=== PATIENT | female | born 1970 | race Two or more races ===

== ENCOUNTER 2019-05-27 09:42 | Outpatient (CLI) | payer OTHER | END 2019-05-27 23:59 | disposition home or self-care (01) | LOC: RAD 09:42 | PROVIDERS: ATTEND Orthopaedic Surgery Orthopaedic Surgery of the Spine | DX: M25.562 Pain in left knee (principal); F32.9 Major depressive disorder, single episode, unspecified; E03.9 Hypothyroidism, unspecified; M06.9 Rheumatoid arthritis, unspecified; Z83.3 Family history of diabetes mellitus; Z82.49 Family history of ischemic heart disease and other diseases of the circulatory system; Z86.11 Personal history of tuberculosis; Z96.652 Presence of left artificial knee joint | CPT/HCPCS: 78315; A9503 ==

== ENCOUNTER 2019-07-01 09:30 | Inpatient (IN) | payer OTHER ==
[~2019-07-01] VITALS: Ht 165.1 cm; Wt 68.9 kg
[~2019-07-01 09:30] MED LIST: LEVO25TA4 PO; METH2.5T PO; TRAM50TA2 PO
[2019-07-01 09:39] LABS: BASOPHILS # (AUTO) 0.07 x10^3/uL (0-0.1); BASOPHILS % (AUTO) 1 % (0-1); EOSINOPHILS # (AUTO) 0.18 x10^3/uL (0-0.4); EOSINOPHILS % (AUTO) 3 % (1-7); LYMPHOCYTES # (AUTO) 2.07 x10^3/uL (1-3.4); LYMPHOCYTES % (AUTO) 28 % (22-44); MD NO; MEAN CORPUSCULAR HEMOGLOBIN 29.1 pg (27.0-34.8); MEAN CORPUSCULAR HGB CONC 32.4 g/dL (32.4-35.8); MEAN CORPUSCULAR VOLUME 89.6 fL (80-100); MONOCYTES # (AUTO) 0.63 x10^3/uL (0.2-0.8); MONOCYTES % (AUTO) 9 % (2-9); NEUTROPHILS # (AUTO) 4.32 x10^3/uL (1.8-6.8); NEUTROPHILS % (AUTO) 60 % (42-75); PLATELET COUNT 343 x10^3/uL (130-400); RED BLOOD COUNT 4.05 x10^6/uL (3.82-5.3); RED CELL DISTRIBUTION WIDTH 16.8 % (9.6-15.2)
[2019-07-01 09:46] LABS: ANION GAP 7 mmol/L (5-15); CALCIUM 9.3 mg/dL (8.5-10.1); CHLORIDE 106 mmol/L (98-107); CREATININE 0.65 mg/dL (0.55-1.02); INTERNATIONAL NORMALIZED RATIO 0.96 (0.93-1.1); PROTHROMBIN TIME 10.1 Seconds (9.6-11.5)
[2019-07-01 10:07] LABS: HEMOGLOBIN A1C 5.4 % (4.2-6.3)
[2019-07-01 10:31] LABS: HCT (SEDRATE) 36.3 % (34.6-47.8)
[2019-07-02] MEDS ORDERED: LACTATED RINGERS 1,000 ML IV SCH (10:32)
[2019-07-02] MEDS ORDERED: ACETAMINOPHEN 500 MG TABLET PO ONE (11:00)
[2019-07-02] MEDS ORDERED: VANCOMYCIN PMX 1GM/200ML 200 ML IV ONE (11:00)
[2019-07-02] MEDS ORDERED: GABAPENTIN 300 MG CAPSULE PO ONE (11:00)
[2019-07-02 11:28] LABS: HCG UR SG 1.018 (1.003-1.030)
[2019-07-02] MEDS ORDERED: NEOSPORIN OINT, 15GM ONE (12:39)
[2019-07-02] MEDS ORDERED: KETOROLAC 60 MG/2 ML ONE (12:39)
[2019-07-02] MEDS ORDERED: TRANEXAMIC ACID 100 MG/ML, 10ML ONE (12:39)
[2019-07-02] MEDS ORDERED: morphine SULFATE/PF 1 MG/ML, 10ML ONE (12:39)
[2019-07-02] MEDS ORDERED: ROPIvacaine/PF 0.2%, 20 ML ONE (12:39)
[2019-07-02] MEDS ORDERED: SODIUM CHLORIDE 0.9% 50 ML ONE (12:39)
[2019-07-02] MEDS ORDERED: EPINEPHRINE 1 MG/ML, 1ML ONE (12:40)
[2019-07-02] MEDS ORDERED: MIDAZOLAM 1 MG/ML, 2ML ONE (13:02)
[2019-07-02] MEDS ORDERED: PROPOFOL 10 MG/ML, 20ML ONE (13:02)
[2019-07-02] MEDS ORDERED: FENTANYL PF 250 MCG/5ML ONE (13:02)
[2019-07-02] MEDS ORDERED: ROCURONIUM 10 MG/ML,10ML ONE (14:19)
[2019-07-02] MEDS ORDERED: CEFAZOLIN 1,000 MG ONE (14:19)
[2019-07-02] MEDS ORDERED: ONDANSETRON 2MG/ML, 2ML ONE (14:19)
[2019-07-02] MEDS ORDERED: GLYCOPYRROLATE 0.2MG/1ML, 5ML ONE (14:19)
[2019-07-02] MEDS ORDERED: NEOSTIGMINE 1 MG/ML, 10ML ONE (14:19)
[2019-07-02] MEDS ORDERED: ONDANSETRON 2MG/ML, 2ML IV PRN (15:00)
[2019-07-02] MEDS ORDERED: OXYcodone 5 MG/5 ML ORAL.SOL UDC PO PRN (15:00)
[2019-07-02] MEDS ORDERED: hydrALAzine 20 MG/ML, 1ML IV PRN (15:00)
[2019-07-02] MEDS ORDERED: LABETALOL 5MG/ML, 20ML IV PRN (15:00)
[2019-07-02] MEDS ORDERED: LORazepam 2 MG/ML, 1ML IVPush PRN (15:00)
[2019-07-02] MEDS ORDERED: MEPERIDINE/PF 25MG/ML,1ML IVPush PRN (15:00)
[2019-07-02] MEDS ORDERED: METOCLOPRAMIDE 5 MG/ML, 2ML IV PRN (15:00)
[2019-07-02] MEDS ORDERED: FENTANYL PF 100 MCG/2ML IV PRN (15:00)
[2019-07-02] MEDS ORDERED: VANCOMYCIN 1,000 MG ONE (16:30)
[2019-07-02] MEDS ORDERED: FENTANYL PF 100 MCG/2ML ONE (17:45)
[2019-07-02] MEDS ORDERED: OXYcodone 5 MG/5 ML ORAL.SOL UDC ONE (17:45)
[2019-07-02] MEDS ORDERED: DIAZEPAM 5 MG/ML, 2ML ONE (18:03)
[2019-07-02] MEDS ORDERED: HYDROmorphone 1 MG/ML, 1ML INJ ONE ×2 (18:03→18:48)
[2019-07-02] MEDS: HYDROmorphone 2 MG/ML, 1ML IVPush PRN ×4 (18:04→19:14)
[2019-07-02] MEDS ORDERED: TRANEXAMIC ACID 100 MG/ML, 10ML IVPB STA (18:20)
[2019-07-02] MEDS ORDERED: TRANEXAMIC ACID 1,000 MG in SODIUM CHLORIDE 0.9% 100 ML IV ONE (18:30)
[2019-07-02] MEDS ORDERED: DIAZEPAM 5 MG/ML, 2ML IV ONE (18:30)
[2019-07-02] MEDS ORDERED: METOCLOPRAMIDE 5 MG/ML, 2ML IVPush PRN (21:00)
[2019-07-02] MEDS ORDERED: ONDANSETRON 2MG/ML, 2ML IVPush PRN (21:00)
[2019-07-02] MEDS ORDERED: ZOLPIDEM 5MG TABLET PO PRN (21:00)
[2019-07-02] MEDS ORDERED: DIPHENHYDRAMINE 25 MG CAPSULE PO PRN (21:00)
[2019-07-02] MEDS ORDERED: HYDROcodone/APAP 5/325 TABLET PO PRN (21:00)
[2019-07-02] MEDS ORDERED: DIPHENHYDRAMINE 50 MG/ML, 1ML IVPush PRN (21:00)
[2019-07-02] MEDS: SODIUM CHLORIDE FLUSH 10ML SYR IVF SCH (21:00)
[2019-07-02] MEDS ORDERED: ONDANSETRON ODT 4 MG PO PRN (21:00)
[2019-07-02] MEDS ORDERED: SENNA/DOCUSATE TABLET PO PRN (21:00)
[2019-07-02] MEDS ORDERED: POLYETHYLENE GLYCOL 17 GM PACKET PO PRN (21:00)
[2019-07-02] MEDS ORDERED: METOCLOPRAMIDE 10MG TABLET PO PRN (21:00)
[2019-07-02] MEDS ORDERED: PROMETHAZINE 25 MG SUPP PR PRN (21:00)
[2019-07-02] MEDS ORDERED: SCOPOLAMINE PATCH, 1.5MG PATCH.TD72 TD PRN (21:00)
[2019-07-02] MEDS ORDERED: LORazepam 2 MG/ML, 1ML IV PRN (21:00)
[2019-07-02] MEDS ORDERED: PROMETHAZINE 25 MG/ML, 1ML IM PRN (21:00)
[2019-07-02] MEDS ORDERED: DEXAMETHASONE 4 MG/ML, 1ML IVPush PRN (21:00)
[2019-07-02] MEDS ORDERED: MORPHINE SULFATE 4 MG/ML, 1ML IVPush PRN (21:00)
[2019-07-02] MEDS ORDERED: BISACODYL 10 MG SUPP PR PRN (21:00)
[2019-07-02] MEDS ORDERED: ALUMINUM/MAG/SIMETHICONE 30 ML UDC PO PRN (21:00)
[2019-07-02] MEDS ORDERED: LORazepam 1MG TABLET PO PRN (21:00)
[2019-07-02] MEDS ORDERED: OXYcodone IR 5MG TABLET PO PRN (21:30)
[2019-07-02] MEDS: ACETAMINOPHEN 500 MG TABLET PO SCH (21:39)
[2019-07-02] MEDS: DOCUSATE 100 MG CAPSULE PO SCH (21:39)
[2019-07-02] MEDS: OXYcodone IR 5MG TABLET PO PRN (21:40)
[2019-07-02] MEDS: KETOROLAC 30 MG/1 ML IVPush SCH (21:40)
[2019-07-02] MEDS ORDERED: VANCOMYCIN PMX 1GM/200ML 200 ML IVPB ONE (23:30)
[2019-07-03] MEDS: D5%-0.45NACL+KCL 20MEQ 1,000 ML IV SCH ×3 (00:07→19:00)
[2019-07-03 00:09] VITALS: BP 128/74
[2019-07-03] MEDS: OXYcodone IR 5MG TABLET PO PRN ×5 (01:12→19:48)
[2019-07-03] MEDS: DIAZEPAM 5 MG TABLET PO PRN ×2 (01:42→09:57)
[2019-07-03 01:51] VITALS: BP 140/78
[2019-07-03] MEDS: ACETAMINOPHEN 500 MG TABLET PO SCH ×4 (03:40→23:34)
[2019-07-03] MEDS: LEVOTHYROXINE 25 MCG TABLET PO SCH (05:38)
[2019-07-03] MEDS: KETOROLAC 30 MG/1 ML IVPush SCH ×2 (05:38→13:09)
[2019-07-03 05:56] LABS: BASOPHILS # (AUTO) 0.02 x10^3/uL (0-0.1); BASOPHILS % (AUTO) 0 % (0-1); EOSINOPHILS # (AUTO) 0.18 x10^3/uL (0-0.4); EOSINOPHILS % (AUTO) 1 % (1-7); LYMPHOCYTES # (AUTO) 1.23 x10^3/uL (1-3.4); LYMPHOCYTES % (AUTO) 9 % (22-44); MD NO; MEAN CORPUSCULAR HEMOGLOBIN 29.3 pg (27.0-34.8); MEAN CORPUSCULAR VOLUME 91.5 fL (80-100); MEAN PLATELET VOLUME 8.6 fL (7.4-10.4); MONOCYTES # (AUTO) 1.04 x10^3/uL (0.2-0.8); MONOCYTES % (AUTO) 8 % (2-9); NEUTROPHILS # (AUTO) 10.98 x10^3/uL (1.8-6.8); NEUTROPHILS % (AUTO) 82 % (42-75); PLATELET COUNT 299 x10^3/uL (130-400); RED BLOOD COUNT 3.55 x10^6/uL (3.82-5.3); RED CELL DISTRIBUTION WIDTH 16.3 % (9.6-15.2)
[2019-07-03 06:36] VITALS: BP 115/71
[2019-07-03] MEDS: ASPIRIN 325 MG TABLET EC PO SCH ×2 (08:26→18:12)
[2019-07-03] MEDS: DOCUSATE 100 MG CAPSULE PO SCH ×2 (08:26→19:49)
[2019-07-03] MEDS: SODIUM CHLORIDE FLUSH 10ML SYR IVF SCH ×2 (08:26→19:49)
[2019-07-03 12:07] VITALS: BP 119/75
[2019-07-03] MEDS: METHOCARBAMOL 1,000 MG in DEXTROSE 5% 100 ML IV SCH ×2 (13:10→21:20)
[2019-07-04 01:16] VITALS: BP 102/62
[2019-07-04] MEDS: OXYcodone IR 5MG TABLET PO PRN ×3 (04:11→12:56)
[2019-07-04] MEDS: D5%-0.45NACL+KCL 20MEQ 1,000 ML IV SCH ×2 (05:00→15:00)
[2019-07-04] MEDS: METHOCARBAMOL 1,000 MG in DEXTROSE 5% 100 ML IV SCH ×2 (05:03→14:34)
[2019-07-04 06:27] LABS: BASOPHILS # (AUTO) 0.04 x10^3/uL (0-0.1); BASOPHILS % (AUTO) 1 % (0-1); EOSINOPHILS # (AUTO) 0.14 x10^3/uL (0-0.4); EOSINOPHILS % (AUTO) 2 % (1-7); LYMPHOCYTES # (AUTO) 2.17 x10^3/uL (1-3.4); LYMPHOCYTES % (AUTO) 28 % (22-44); MD NO; MEAN CORPUSCULAR HEMOGLOBIN 30.1 pg (27.0-34.8); MEAN CORPUSCULAR HGB CONC 32.9 g/dL (32.4-35.8); MEAN CORPUSCULAR VOLUME 91.6 fL (80-100); MEAN PLATELET VOLUME 8.2 fL (7.4-10.4); MONOCYTES # (AUTO) 0.53 x10^3/uL (0.2-0.8); MONOCYTES % (AUTO) 7 % (2-9); NEUTROPHILS # (AUTO) 4.99 x10^3/uL (1.8-6.8); NEUTROPHILS % (AUTO) 63 % (42-75); PLATELET COUNT 232 x10^3/uL (130-400); RED BLOOD COUNT 2.97 x10^6/uL (3.82-5.3); RED CELL DISTRIBUTION WIDTH 17.3 % (9.6-15.2)
[2019-07-04] MEDS: LEVOTHYROXINE 25 MCG TABLET PO SCH (06:27)
[2019-07-04] MEDS: ACETAMINOPHEN 500 MG TABLET PO SCH ×2 (06:27→12:11)
[2019-07-04] MEDS: ASPIRIN 325 MG TABLET EC PO SCH (06:28)
[2019-07-04 08:14] VITALS: BP 108/70
[2019-07-04] MEDS: SODIUM CHLORIDE FLUSH 10ML SYR IVF SCH (08:38)
[2019-07-04] MEDS: DOCUSATE 100 MG CAPSULE PO SCH (08:38)
[2019-07-04] MEDS ORDERED: OXYC15TA PO (13:44)
[2019-07-04 13:47] VITALS: BP 105/67
[2019-07-04] MEDS ORDERED: DIAZ5TAB PO (13:48)
[2019-07-04] MEDS ORDERED: CEPH-368 PO (13:51)
[2019-07-04] MEDS ORDERED: ASPI-650 PO (13:52)
[2019-07-04] MEDS ORDERED: IBUP-1223 PO (13:56)
[2019-07-04] MEDS ORDERED: ACET325T14 PO (13:58)
== END 2019-07-04 16:08 | disposition home health service (06) | DRG 468 ==
LOC: ORIP 07-02 10:25 → EDSTATUS 07-02 12:30 → 4NE 07-02 20:05 → DCLOUNGE 07-04 15:53
PROVIDERS: ADMIT Orthopaedic Surgery Orthopaedic Surgery of the Spine; ATTEND Orthopaedic Surgery Orthopaedic Surgery of the Spine
PROC: 0SRD069 Replacement of Left Knee Joint with Oxidized Zirconium on Polyethylene Synthetic Substitute, Cemented, Open Approach (ICD-10-PCS; 2019-07-02)
PROC: 3E0T3BZ Introduction of Anesthetic Agent into Peripheral Nerves and Plexi, Percutaneous Approach (ICD-10-PCS; 2019-07-02)
PROC: B54CZZA Ultrasonography of Left Lower Extremity Veins, Guidance (ICD-10-PCS; 2019-07-02)
PROC: 0SPD0JZ Removal of Synthetic Substitute from Left Knee Joint, Open Approach (ICD-10-PCS; principal; 2019-07-02 12:30)
DX: T84.093A Other mechanical complication of internal left knee prosthesis, initial encounter (principal); M17.10 Unilateral primary osteoarthritis, unspecified knee; Y79.2 Prosthetic and other implants, materials and accessory orthopedic devices associated with adverse incidents; E03.9 Hypothyroidism, unspecified; F32.9 Major depressive disorder, single episode, unspecified; M65.862 Other synovitis and tenosynovitis, left lower leg; M06.862 Other specified rheumatoid arthritis, left knee; Y92.89 Other specified places as the place of occurrence of the external cause; Y93.9 Activity, unspecified; Y99.8 Other external cause status
CPT/HCPCS: 36415; 71046; 80048; 81025; 83036; 85025; 85610; 85651; 85730; 87081; 93005; C1713; G0378; J0171; J0690; J1170; J1885; J2250; J2274; J2405; J2704; J2710; J2795; J3010; J3360; J3370; C1776; J2800; J3480; J7120

== ENCOUNTER 2019-11-08 13:25 | Emergency (ER) | payer BC, OTHER ==
[~2019-11-08] VITALS: Ht 165.1 cm; Wt 71.6 kg
[~2019-11-08 13:25] MED LIST changes: +ACET325T14 PO; +ASPI-650 PO; +CEPH-368 PO; +DIAZ5TAB PO; +IBUP-1223 PO; +OXYC15TA PO
[2019-11-08] MEDS ORDERED: ONDANSETRON 2MG/ML, 2ML IVPush ONE (14:00)
[2019-11-08] MEDS ORDERED: SODIUM CHLORIDE FLUSH 10ML SYR IVF ONE (14:00)
[2019-11-08] MEDS ORDERED: MORPHINE SULFATE 4 MG/ML, 1ML IVPush PRN (14:00)
[2019-11-08] MEDS ORDERED: ONDANSETRON 2MG/ML, 2ML ONE (14:14)
[2019-11-08] MEDS ORDERED: MORPHINE SULFATE 4 MG/ML, 1ML ONE (14:15)
[2019-11-08 14:17] LABS: BASOPHILS # (AUTO) 0.05 x10^3/uL (0-0.1); BASOPHILS % (AUTO) 1 % (0-1); EOSINOPHILS # (AUTO) 0.09 x10^3/uL (0-0.4); EOSINOPHILS % (AUTO) 2 % (1-7); LYMPHOCYTES # (AUTO) 2.11 x10^3/uL (1-3.4); LYMPHOCYTES % (AUTO) 36 % (22-44); MD NO; MEAN CORPUSCULAR HEMOGLOBIN 29.6 pg (27.0-34.8); MEAN CORPUSCULAR HGB CONC 33.3 g/dL (32.4-35.8); MEAN CORPUSCULAR VOLUME 88.8 fL (80-100); MEAN PLATELET VOLUME 8.8 fL (7.4-10.4); MONOCYTES # (AUTO) 0.42 x10^3/uL (0.2-0.8); MONOCYTES % (AUTO) 7 % (2-9); NEUTROPHILS # (AUTO) 3.16 x10^3/uL (1.8-6.8); NEUTROPHILS % (AUTO) 54 % (42-75); PLATELET COUNT 291 x10^3/uL (130-400); RED BLOOD COUNT 4.23 x10^6/uL (3.82-5.3); RED CELL DISTRIBUTION WIDTH 16.9 % (9.6-15.2)
[2019-11-08 14:19] LABS: ALANINE AMINOTRANSFERASE 42 U/L (12-78); ALBUMIN 4.1 g/dL (3.4-5.0); ANION GAP 3 mmol/L (5-15); CALCIUM 9.6 mg/dL (8.5-10.1); CHLORIDE 108 mmol/L (98-107); CREATININE 0.65 mg/dL (0.55-1.02)
[2019-11-08 14:20] LABS: MICROSCOPIC NOT IND
[2019-11-08 14:24] LABS: ALKALINE PHOSPHATASE 108 U/L (45-117); BILIRUBIN,TOTAL 0.4 mg/dL (0.2-1.0); TOTAL PROTEIN 8.4 g/dL (6.4-8.2)
[2019-11-08 14:31] LABS: CULTURE INDICATED? NO
[2019-11-08] MEDS ORDERED: OMNIPAQUE 350 MG/ML, 150 ML BOTTLE ONE (15:04)
--- NOTE | 2019-11-08 15:15 | NUR ---
Late note: Patient into room, RN to bedside, patient standing awaiting assessment by provider. Provider to bedside, orders placed, RN returned and obtained peripheral intravenou access per order. RN returned, patient medicated with analgesic and antiemetic medications. Patient tolerated well. On return patient reevaluated by provider new order placed for additional imaging.
--- NOTE | 2019-11-08 15:50 | NUR ---
BREAK RN NOTE: PT IN US.
--- NOTE | 2019-11-08 16:19 | NUR ---
Patient remains in ultrasound. Awaiting return.
[2019-11-08 16:28] VITALS: BP 115/64
== END 2019-11-08 17:15 | disposition home or self-care (01) ==
LOC: ED 13:55
DX: R10.31 Right lower quadrant pain (principal); R30.0 Dysuria; Z87.442 Personal history of urinary calculi
CPT/HCPCS: 36415; 74177; 76830; 80053; 81003; 84703; 85025; 96374; 96375; 99285; J2270; J2405; Q9967

== ENCOUNTER 2019-11-21 21:07 | Emergency (ER) | payer BC ==
[~2019-11-21] VITALS: Ht 165.1 cm; Wt 68.2 kg
[~2019-11-21 21:07] MED LIST changes: -OXYC15TA PO; +OXYC15TA3 PO
--- NOTE | 2019-11-21 21:38 | NUR ---
PT CAME IN CO OF "CHEST PAIN, COUGH, SOB, AND FEVER". PTs FAMILY MEMBERS HAVE ALL BEEN HAVING SIMILAR SYMPTOMS. PT IS RESTING IN GURNEY CONNECTED TO [employer] AND [employer] FAC[employer] MEMBER. EKG COMPLETE.
[2019-11-21] MEDS ORDERED: HYDROmorphone 2 MG/ML, 1ML ONE (21:41)
[2019-11-21] MEDS ORDERED: ONDANSETRON 2MG/ML, 2ML ONE (21:41)
[2019-11-21] MEDS ORDERED: SODIUM CHLORIDE 0.9% 1,000ML IVBOLUS ONE (22:00)
[2019-11-21] MEDS ORDERED: HYDROmorphone 1 MG/ML, 1ML INJ IVPush PRN (22:00)
[2019-11-21] MEDS ORDERED: SODIUM CHLORIDE FLUSH 10ML SYR IVF ONE (22:00)
[2019-11-21] MEDS ORDERED: ONDANSETRON 2MG/ML, 2ML IVPush ONE (22:00)
[2019-11-21 22:14] LABS: BASOPHILS # (AUTO) 0.02 x10^3/uL (0-0.1); BASOPHILS % (AUTO) 0 % (0-1); EOSINOPHILS # (AUTO) 0.02 x10^3/uL (0-0.4); EOSINOPHILS % (AUTO) 0 % (1-7); LYMPHOCYTES % (AUTO) 25 % (22-44); MD NO; MEAN CORPUSCULAR HEMOGLOBIN 29.4 pg (27.0-34.8); MEAN CORPUSCULAR HGB CONC 33.2 g/dL (32.4-35.8); MEAN CORPUSCULAR VOLUME 88.6 fL (80-100); MEAN PLATELET VOLUME 8.9 fL (7.4-10.4); MONOCYTES # (AUTO) 0.51 x10^3/uL (0.2-0.8); MONOCYTES % (AUTO) 9 % (2-9); NEUTROPHILS % (AUTO) 65 % (42-75); PLATELET COUNT 182 x10^3/uL (130-400); RED BLOOD COUNT 4.12 x10^6/uL (3.82-5.3); RED CELL DISTRIBUTION WIDTH 18.2 % (9.6-15.2)
[2019-11-21 22:26] LABS: ALANINE AMINOTRANSFERASE 21 U/L (12-78); ALBUMIN 3.4 g/dL (3.4-5.0); ANION GAP 8 mmol/L (5-15); CALCIUM 8.4 mg/dL (8.5-10.1); CHLORIDE 108 mmol/L (98-107); CREATININE 0.61 mg/dL (0.55-1.02)
[2019-11-21 22:28] LABS: ALKALINE PHOSPHATASE 84 U/L (45-117); BILIRUBIN,TOTAL 0.3 mg/dL (0.2-1.0); TOTAL PROTEIN 7.9 g/dL (6.4-8.2)
--- NOTE | 2019-11-21 22:30 | NUR ---
PLACED PT ON 2 LITERS OF O2 VIA NC.
--- NOTE | 2019-11-21 23:14 | NUR ---
REPORT FROM MELISSA ASHFORD
[2019-11-21] MEDS ORDERED: DIAZEPAM 5 MG TABLET ONE (23:24)
--- NOTE | 2019-11-21 23:27 | NUR ---
[employer] ASSOCIATE TXILLAR ASSISTED W/ TRIAGE AND ROOMING OF PT.
[2019-11-21] MEDS ORDERED: DIAZEPAM 5 MG TABLET PO ONE (23:30)
--- NOTE | 2019-11-21 23:33 | NUR ---
PT STATES HER PAIN HAS IMPROVED BUT STILL HAS COMPLAINTS OF A HEADACHE. PT MEDICATED PER EMAR FOR HEADACHE.
--- NOTE | 2019-11-22 00:06 | NUR ---
TASK RN: CONSENT SIGNED FOR LP. SUPPLIES AT BEDSIDE. AWAITING ERP FOR PROCEDURE. BP/SPO2 MONITORING IN PLACE. SPO2 >90% ON RA.
[2019-11-22 00:19] VITALS: BP 108/58
--- NOTE | 2019-11-22 00:20 | NUR ---
TASK RN: PT 88-90% ON RA. RR WNL. PLACED ON 2L O2 BY NC FOR SUPPORT. DENIES SOB
--- NOTE | 2019-11-22 00:35 | NUR ---
DR GALLO IN TO PERFORM LP NOW
--- NOTE | 2019-11-22 00:47 | NUR ---
PT TOLERATED LP WELL. CSF WALKED TO LAB
[2019-11-22 01:01] LABS: GLUCOSE, CSF 54 mg/dL (40-80); TOTAL PROTEIN,CSF 23 mg/dL (15-45)
[2019-11-22] MEDS ORDERED: HYDROcodone/APAP 5/325 TABLET PO ONE (01:30)
[2019-11-22] MEDS ORDERED: HYDROcodone/APAP 5/325 TABLET ONE (02:04)
[2019-11-22] MEDS ORDERED: ONDANSETRON ODT 4 MG ONE (02:06)
[2019-11-22] MEDS ORDERED: ONDANSETRON ODT 8 MG PO ONE (02:30)
== END 2019-11-22 02:20 | disposition home or self-care (01) ==
LOC: ED 21:45
DX: U07.1 COVID-19 (principal); R05 Cough; R50.9 Fever, unspecified; R06.00 Dyspnea, unspecified; R51 Headache; R07.9 Chest pain, unspecified; Z86.39 Personal history of other endocrine, nutritional and metabolic disease
CPT/HCPCS: 36415; 62270; 70450; 71045; 80053; 82945; 83605; 84157; 85025; 87040; 87070; 87205; 87252; 89051; 93005; 96374; 96375; 99285; J1170; J2405; J7030; Q0162; U0001; 96361